=== PATIENT | female | born 1945 | race Caucasian/White ===

== ENCOUNTER → 2016-10-04 | Outpatient (CLI) | payer MEDICARE ==
--- NOTE | 2016-10-04 16:01 | WOMENS IMAGING REPORT ---
EXAM DESCRIPTION: BONE DENSITY HIP/SPINE COMPLETED DATE/TIME: 10/04/2016 2:51 pm REASON FOR STUDY: M81.0 M81.0 AGE-RELATED OSTEOPOROSIS W/O CURRENT PATHOLOGICAL FRAC COMPARISON: 12/08/2004 TECHNIQUE: Dual-Energy X-ray Absorptiometry (DEXA) of the AP Spine and Hip. LIMITATIONS: None. FINDINGS: LUMBAR SPINE: The bone mineral density (BMD) measured from L1-L4 in the AP projection correlates with a T-score of +1.1, which is normal as defined by the World Health Organization. No significant change since 2004 HIP: The bone mineral density (BMD) measured in the left femoral neck at the hip correlates with a T-score of -0.2, which is normal as defined by the World Health Organization. This represents a 9% decline in bone density since 2004 IMPRESSION: 1. LUMBAR SPINE: Normal 2. HIP: Normal COMMENT: The World Health Organization defines low BMD as follows: T-score: Normal: Greater than -1.0 Osteopenia: Between -1.0 and -2.5 Osteoporosis: Less than -2.5 without fractures Established osteoporosis: Less than -2.5 with fractures In general, you may wish to consider: Diagnosis Treatment Follow-up DEXA Normal BMD Prevention 2-3 years Osteopenia Prevention/Therapy 1-2 years Osteoporosis Therapy Yearly TECHNICAL DOCUMENTATION: JOB ID: [id number]- All Rights Reserved
== END ==
LOC: WI 13:04
PROVIDERS: ATTEND Family Medicine
DX: M81.0 Age-related osteoporosis without current pathological fracture (principal)
CPT/HCPCS: 77080

== ENCOUNTER → 2017-05-30 | Outpatient (CLI) | payer MEDICARE ==
--- NOTE | 2017-05-30 16:28 | WOMENS IMAGING REPORT ---
EXAM DESCRIPTION: BILAT SCREENING MAMMO W/CAD COMPLETED DATE/TIME: 05/30/2017 10:37 am REASON FOR STUDY: ROUTINE SCREENING; Z12.31 Z12.31 ENCNTR SCREEN MAMMOGRAM FOR MALIGNANT NEOPLASM O F ARMANDO COMPARISON: 2012 to 2015 TECHNIQUE: Standard craniocaudal and mediolateral oblique views of each breast recorded using Mindiea l acquisition. LIMITATIONS: None. FINDINGS: No masses, calcifications or architectural distortion. No areas of suspicion. Read with the assistance of CAD. .[facility] - R2 Cenova Version 1.3 .[facility] - R2 Cenova Version 1.3 .[facility] - R2 Cenova Version 2.4 .[facility] - R2 Cenova Version 2.4 .[facility] - R2 Vacuum Frame Operator Version 9.2 IMPRESSION: NORMAL MAMMOGRAM. BIRADS 1. BREAST DENSITY: b. There are scattered areas of fibroglandular density. BIRAD: 1 NEGATIVE RECOMMENDATION: ROUTINE SCREENING COMMENT: The patient has been notified of the results by letter per SA requirements. Additional no tification policies are in place for contacting patient with suspicious or incomplete findings. Quality ID #[id number]: The [employer] recommends an annual screening mammogram for women aged 40 years or over. This facility utilizes a reminder system to ensure that all patients receive reminder letters, and/or direct phone calls for appointments. This includes reminders for routine scr eening mammograms, diagnostic mammograms, or other Breast Imaging Interventions when appropriate. Th is patient will be placed in the appropriate reminder system. The [employer] (ACR) has developed recommendations for screening MRI of the breast s in certain patient populations, to be used in conjunction with mammography. Breast MRI surveillanc e may be appropriate for women with more than 20% lifetime risk of developing breast cancer as deter mined by genetic testing, significant family history of the disease, or history of mantle radiation f or Hodgkins Disease. ACR Practice Guidelines 2008. TECHNICAL DOCUMENTATION: FINDING NUMBER: (1) ASSESSMENT: (1) JOB ID: [id number] [employer]- All Rights Reserved
== END ==
LOC: WI 10:21
PROVIDERS: ATTEND Family Medicine
DX: Z12.31 Encounter for screening mammogram for malignant neoplasm of breast (principal)
CPT/HCPCS: 77067

== ENCOUNTER → 2018-08-31 | Outpatient (CLI) | payer MEDICARE ==
--- NOTE | 2018-08-31 12:53 | WOMENS IMAGING REPORT ---
EXAM DESCRIPTION: 3D SCREENING MAMMO BILAT COMPLETED DATE/TIME: 08/31/2018 10:54 am REASON FOR STUDY: Z12.31 ROUTINE 3D BILATERAL SCREENING Z12.31 ENCNTR SCREEN MAMMOGRAM FOR MALIGNAN T NEOPLASM OF ARMANDO COMPARISON: Multiple since 2008 EXAM PARAMETERS: Standard craniocaudal and mediolateral oblique views of each breast recorded using digital acquisition and breast tomosynthesis. Read with the assistance of CAD. .[facility] - R2 Manager Of Construction Version 9.2 LIMITATIONS: None. FINDINGS: Findings present which are benign by mammographic criteria. No suspicious masses, calcific ations or architectural distortion. Pertinent benign findings: Benign bilateral breast parenchymal calcifications. Old stereotactic biop sy clip left breast Benign mammographic findings may include one or more of the following: Smooth masses, popcorn/rim/coa rse calcifications, asymmetries, post-procedure changes, and lesions with long-standing stability. IMPRESSION: Assessment: BENIGN MAMMOGRAPHIC FINDINGS. BIRADS 2 BREAST DENSITY: b. There are scattered areas of fibroglandular density. BIRAD: 2 BENIGN FINDING(S) RECOMMENDATION: ROUTINE SCREENING COMMENT: The patient has been notified of the results by letter per MQSA requirements. Additional no tification policies are in place for contacting patient with suspicious or incomplete findings. Quality ID #[id number]: The [employer] recommends an annual screening mammogram for women aged 40 years or over. This facility utilizes a reminder system to ensure that all patients receive reminder letters, and/or direct phone calls for appointments. This includes reminders for routine scr eening mammograms, diagnostic mammograms, or other Breast Imaging Interventions when appropriate. Th is patient will be placed in the appropriate reminder system. TECHNICAL DOCUMENTATION: FINDING NUMBER: (1) ASSESSMENT: (1) JOB ID: [id number] [employer]- All Rights Reserved Reading location - IP/workstation name: [email or web address]
== END ==
LOC: WI 10:39
PROVIDERS: ATTEND Family Medicine
DX: Z12.31 Encounter for screening mammogram for malignant neoplasm of breast (principal)
CPT/HCPCS: 77063; 77067

== ENCOUNTER 2018-11-05 11:02 | Emergency (ER) | payer MEDICARE ==
[2018-11-05] MEDS ORDERED: ONDANSETRON HCL INJ/PF 4 MG/2 ML SDV IV ONE (12:45)
[2018-11-05] MEDS ORDERED: NORMAL SALINE 1000 ML 1,000 ML IV ONE (12:45)
--- NOTE | 2018-11-05 12:46 | ER Document Report ---
ED Medical Screen (RME) - General Chief Complaint: Nausea/Vomiting/Diarrhea Stated Complaint: ABDOMINAL PAIN Time Seen by Provider: 11/05/18 12:40 Primary Care Provider: MALATHI GIPSON MD [Primary Care Provider] - Follow up as needed Mode of Arrival: Ambulatory Information source: Patient Notes: Patient is a 73-year-old female presents emergency department chief complaint of nausea, vomiting and diarrhea. Patient reports symptoms started yesterday. Patient reports he thinks he may have food poisoning and she ate some keep steak that had been in her refrigerator for over 2 weeks. Patient's reports that the meat had a foul smell to it. Patient now reports blood in her stool. Exam: Generalized abdominal tenderness to palpation, no guarding no rebound. I have greeted and performed a rapid initial assessment of this patient. A comprehensive ED assessment and evaluation of the patient, analysis of test results and completion of the medical decision making process will be conducted by additional ED providers. I have specifically instructed the patient or family members with the patient to immediately return to any nursing staff should anything change in the patient's condition or with their chief complaint. This medical record was dictated with voice recognizing software. There may be grammatical, syntax errors that are unintended. TRAVEL OUTSIDE OF THE [place] IN LAST 30 DAYS: No - Related Data Allergies/Adverse Reactions: No Known Allergies Allergy (Verified 11/05/18 11:04) Past Medical History - Social History Frequency of alcohol use: None Drug Abuse: None - Past Medical History Cardiac Medical History: Reports: Hx Hypercholesterolemia, Hx Hypertension Endocrine Medical History: Reports: Hx Diabetes Mellitus Type 2 Renal/ Medical History: Denies: Hx Peritoneal Dialysis Past Surgical History: Reports: Hx Cardiac Surgery, Hx Cholecystectomy, Hx Hysterectomy, Hx Orthopedic Surgery - L KNee - Immunizations Hx Diphtheria, Pertussis, Tetanus Vaccination: No Physical Exam - Vital signs Vitals: Temp Pulse Resp BP Pulse Ox 98.1 F 98 16 96/78 L 99 11/05/18 11:24 11/05/18 11:24 11/05/18 11:11/05/18 11:11/05/18 11:24 Course - Vital Signs Vital signs: Temp Pulse Resp BP Pulse Ox 98.1 F 98 16 96/78 L 99 11/05/18 11:24 11/05/18 11:24 11/05/18 11:24 11/05/18 11:24 11/05/18 11:24 Doctor's Discharge - Discharge Referrals: MALATHI GIPSON MD [Primary Care Provider] - Follow up as needed
[2018-11-05 13:36] LABS: ABSOLUTE BASOPHILS # (AUTO) 0.1 10^3/uL (0.0-0.2); ABSOLUTE LYMPHOCYTES (AUTO) 1.5 10^3/uL (0.5-4.7); ABSOLUTE MONOCYTES (AUTO) 1.5 10^3/uL (0.1-1.4); ABSOLUTE NEUT (AUTO) 15.2 10^3/uL (1.7-8.2); BASOPHILS % (AUTO) 0.5 % (0-2); EOSINOPHILS % (AUTO) 0.1 % (0-6); HEMATOCRIT 47.6 % (36.0-47.0); HEMOGLOBIN 15.6 g/dL (12.0-15.5); LYMPHOCYTES % (AUTO) 8.1 % (13-45); MEAN CORPUSCULAR HEMOGLOBIN 27.2 pg (27.0-33.4); MEAN CORPUSCULAR HGB CONC 32.8 g/dL (32.0-36.0); MEAN CORPUSCULAR VOLUME 83 fl (80-97); PLATELET COUNT 176 10^3/uL (150-450); RED BLOOD COUNT 5.73 10^6/uL (3.72-5.28); RED CELL DISTRIBUTION WIDTH 14.9 % (11.5-14.0); SEGMENTED NEUTROPHILS % (AUTO) 83.3 % (42-78); TOTAL CELLS COUNTED % (AUTO) 100 %; WHITE BLOOD COUNT 18.2 10^3/uL (4.0-10.5)
[2018-11-05 13:56] LABS: ALANINE AMINOTRANSFERASE 18 U/L (9-52); ALBUMIN 4.8 g/dL (3.5-5.0); ALKALINE PHOSPHATASE 67 U/L (38-126); ANION GAP 12 (5-19); ASPARTATE AMINO TRANSFERASE 31 U/L (14-36); BILIRUBIN,DIRECT 0.4 mg/dL (0.0-0.4); BILIRUBIN,TOTAL 1.5 mg/dL (0.2-1.3); BLOOD UREA NITROGEN 26 mg/dL (7-20); CALCIUM 9.9 mg/dL (8.4-10.2); CARBON DIOXIDE 23 mmol/L (22-30); CHLORIDE 103 mmol/L (98-107); GLUCOSE 175 mg/dL (75-110); POTASSIUM 4.1 mmol/L (3.6-5.0); TOTAL PROTEIN 7.9 g/dL (6.3-8.2)
--- NOTE | 2018-11-05 15:20 | ER Document Report ---
ED GI/ - General Chief Complaint: Nausea/Vomiting/Diarrhea Stated Complaint: ABDOMINAL PAIN Time Seen by Provider: 11/05/18 12:40 Primary Care Provider: MALATHI GIPSON MD [Primary Care Provider] - Follow up as needed Mode of Arrival: Ambulatory Information source: Patient Notes: Patient presents complaining of nausea vomiting diarrhea that started yesterday. Patient states she ate supper and is concerned she may have gotten food poisoning. Patient complains of generalized abdominal pain. Patient states she did notice blood in her stool with the diarrhea. Patient states that the vomiting and diarrhea have stopped although she has had bloody drainage from the rectum. Patient complains of generalized weakness. No fever. Patient does take Eliquis for atrial fibrillation. TRAVEL OUTSIDE OF THE [place] IN LAST 30 DAYS: No - HPI Patient complains to provider of: Abdominal pain, Diarrhea, Vomiting Onset: Yesterday Timing/Duration: Persistent Quality of pain: Achy, Cramping Pain Level: 2 Location: Pelvis Vaginal bleeding (Compared to normal period): None Associated symptoms: Blood in stool, Diarrhea, Nausea, Vomiting. denies: Fever Exacerbated by: Denies Relieved by: Denies Similar symptoms previously: No Recently seen / treated by doctor: No - Related Data Allergies/Adverse Reactions: No Known Allergies Allergy (Verified 11/05/18 11:04) Past Medical History - General Information source: Patient - Social History Smoking Status: Current Every Day Smoker Frequency of alcohol use: None Drug Abuse: None Family History: Reviewed & Not Pertinent Patient has suicidal ideation: No Patient has homicidal ideation: No - Past Medical History Cardiac Medical History: Reports: Hx Atrial Fibrillation, Hx Hypercholesterolemia, Hx Hypertension Endocrine Medical History: Reports: Hx Diabetes Mellitus Type 1 Renal/ Medical History: Denies: Hx Peritoneal Dialysis Past Surgical History: Reports: Hx Cardiac Surgery, Hx Cholecystectomy, Hx Hysterectomy, Hx Orthopedic Surgery - L KNee - Immunizations Hx Diphtheria, Pertussis, Tetanus Vaccination: No Review of Systems - Review of Systems Constitutional: Weakness. denies: Fever, Recent illness EENT: No symptoms reported Cardiovascular: No symptoms reported. denies: Chest pain Respiratory: No symptoms reported. denies: Cough, Short of breath Gastrointestinal: Abdominal pain, Diarrhea, Nausea, Vomiting, Rectal bleeding Genitourinary: No symptoms reported. denies: Dysuria Female Genitourinary: No symptoms reported Musculoskeletal: No symptoms reported Skin: No symptoms reported Hematologic/Lymphatic: No symptoms reported Neurological/Psychological: No symptoms reported Physical Exam - Vital signs Vitals: Temp Pulse Resp BP Pulse Ox 98.1 F 98 16 96/78 L 99 11/05/18 11:24 11/05/18 11:24 11/05/18 11:24 11/05/18 11:24 11/05/18 11:24 - General General appearance: Appears well, Alert In distress: None - HEENT Head: Normocephalic, Atraumatic Eyes: Normal Conjunctiva: Normal Nasal: Normal Mouth/Lips: Normal Mucous membranes: Normal Neck: Normal, Supple. No: Lymphadenopathy - Respiratory Respiratory status: No respiratory distress Chest status: Nontender Breath sounds: Normal. No: Rales, Rhonchi, Stridor, Wheezing Chest palpation: Normal - Cardiovascular Rhythm: Irregularly irregular Heart sounds: S1 appreciated, S2 appreciated - Abdominal Inspection: Normal Distension: No distension Bowel sounds: Normal Tenderness: Tender - lower pelvic Organomegaly: No organomegaly - Rectal Tenderness: No Stool: Heme positive, Bloody Hemorrhoids: None - Back Back: Normal, Nontender. No: CVA tenderness - Extremities General upper extremity: Normal inspection, Normal ROM General lower extremity: Normal inspection, Normal ROM - Neurological Neuro grossly intact: Yes Cognition: Normal Kobe Coma Scale Eye Opening: Spontaneous Kobe Coma Scale Verbal: Oriented Steinauer Coma Scale Motor: Obeys Commands Kobe Coma Scale Total: 15 - Psychological Associated symptoms: Normal affect, Normal mood - Skin Skin Temperature: Warm Skin Moisture: Dry Skin Color: Normal Course - Re-evaluation Re-evalutation: 11/05/18 17:[address] Radha Salazar regarding patient presentation and diagnostic evaluation, reviewed patient's laboratory reports. Patient presents with rectal bleeding after having numerous episodes of diarrhea. Patient has been taking Eliquis for her A. fib. Patient denies any other abnormal bleeding or bruising. Recommends adding on CT scan with IV contrast to evaluate for possible diverticulitis at this time. Recommends contacting hospitalist for admission. 11/05/18 17:[address] Farr regarding patient presentation, he will be down to evaluate patient for admission. - Vital Signs Vital signs: Temp Pulse Resp BP Pulse Ox 98.9 F 98 16 123/68 96 11/05/18 18:37 11/05/18 11:24 11/05/18 20:03 11/05/18 20:03 11/05/18 20:03 - Laboratory Result Diagrams: 11/05/18 13:05 11/05/18 13:05 Laboratory results interpreted by me: 11/05/18 11/05/18 11/05/18 13:05 13:05 16:15 WBC 18.2 H RBC 5.73 H Hgb 15.6 H Hct 47.6 H RDW 14.9 H Seg Neutrophils % 83.3 H Lymphocytes % 8.1 L Absolute Neutrophils 15.2 H Absolute Monocytes 1.5 H BUN 26 H Est GFR (Non-Af Amer) 55 L Glucose 175 H Total Bilirubin 1.5 H Urine Blood SMALL H 11/05/18 20:34 Labs- Entire Visit 11/05/18 11/05/18 11/05/18 13:05 13:05 13:05 WBC 18.2 H RBC 5.73 H Hgb 15.6 H Hct 47.6 H MCV 83 MCH 27.2 MCHC 32.8 RDW 14.9 H Plt Count 176 Seg Neutrophils % 83.3 H Lymphocytes % 8.1 L Monocytes % 8.0 Eosinophils % 0.1 Basophils % 0.5 Absolute Neutrophils 15.2 H Absolute Lymphocytes 1.5 Absolute Monocytes 1.5 H Absolute Eosinophils 0.0 Absolute Basophils 0.1 PT 14.7 INR 1.14 APTT 28.5 Sodium 138.4 Potassium 4.1 Chloride 103 Carbon Dioxide 23 Anion Gap 12 BUN 26 H Creatinine 1.00 Est GFR ( Amer) > 60 Est GFR (Non-Af Amer) 55 L Glucose 175 H Calcium 9.9 Total Bilirubin 1.5 H Direct Bilirubin 0.4 Neonat Total Bilirubin Not Reportable Neonat Direct Bilirubin Not Reportable Neonat Indirect Bili Not Reportable AST 31 ALT 18 Alkaline Phosphatase 67 Total Protein 7.9 Albumin 4.8 Lipase 66.7 Urine Color Urine Appearance Urine pH Ur Specific Moffit Urine Protein Urine Glucose (UA) Urine Ketones Urine Blood Urine Nitrite Urine Bilirubin Urine Urobilinogen Ur Leukocyte Esterase Urine WBC (Auto) Urine RBC (Auto) U Hyaline Cast (Auto) Urine Bacteria (Auto) Squamous Epi Cells Auto Urine Mucus (Auto) Urine Ascorbic Acid POC Stool Occult Blood 11/05/18 11/05/18 16:06 16:15 WBC RBC Hgb Hct MCV MCH MCHC RDW Plt Count Seg Neutrophils % Lymphocytes % Monocytes % Eosinophils % Basophils % Absolute Neutrophils Absolute Lymphocytes Absolute Monocytes Absolute Eosinophils Absolute Basophils PT INR APTT Sodium Potassium Chloride Carbon Dioxide Anion Gap BUN Creatinine Est GFR ( Amer) Est GFR (Non-Af Amer) Glucose Calcium Total Bilirubin Direct Bilirubin Neonat Total Bilirubin Neonat Direct Bilirubin Neonat Indirect Bili AST ALT Alkaline Phosphatase Total Protein Albumin Lipase Urine Color RAFAL Urine Appearance SLIGHTLY-CLOUDY Urine pH 5.0 Ur Specific Moffit 1.016 Urine Protein NEGATIVE Urine Glucose (UA) NEGATIVE Urine Ketones NEGATIVE Urine Blood SMALL H Urine Nitrite NEGATIVE Urine Bilirubin NEGATIVE Urine Urobilinogen NEGATIVE Ur Leukocyte Esterase NEGATIVE Urine WBC (Auto) 10 Urine RBC (Auto) 1 U Hyaline Cast (Auto) 56 Urine Bacteria (Auto) TRACE Squamous Epi Cells Auto 2 Urine Mucus (Auto) MOD Urine Ascorbic Acid NEGATIVE POC Stool Occult Blood POSITIVE - Diagnostic Test Radiology reviewed: Reports reviewed Discharge - Discharge Clinical Impression: Rectal bleeding, Nausea vomiting and diarrhea Abdominal pain Qualifiers: Abdominal location: lower abdomen, unspecified Qualified Code(s): R10.30 - Lower abdominal pain, unspecified Condition: Fair Disposition: ADMITTED OBSERVATION Admitting Provider: Yordan (Hospitalist) Unit Admitted: Telemetry Referrals: MALATHI GIPSON MD [Primary Care Provider] - Follow up as needed
[2018-11-05 15:43] LABS: INTERNATIONAL RATION (INR) 1.14; PARTIAL THROMBOPLASTIN TIME 28.5 SEC (23.5-35.8); PROTHROMBIN TIME 14.7 SEC (11.4-15.4)
[2018-11-05] MEDS ORDERED: PANTOPRAZOLE SODIUM 40 MG VIAL IV ONE (16:10)
[2018-11-05 16:46] LABS: APPEARANCE,URINE SLIGHTLY-CLOUDY; BILIRUBIN,URINE NEGATIVE (NEGATIVE); COLOR,URINE AMBER; GLUCOSE, URINE NEGATIVE (NEGATIVE); KETONES,URINE NEGATIVE (NEGATIVE); LEUKOCYTE ESTERASE,URINE NEGATIVE (NEGATIVE); NITRITE,URINE NEGATIVE (NEGATIVE); PROTEIN,URINE NEGATIVE (NEGATIVE); URINE SPECIFIC GRAVITY 1.016; UROBILINOGEN,URINE NEGATIVE mg/dL (<2.0)
[2018-11-05] MEDS ORDERED: PANTOPRAZOLE SODIUM 40 MG VIAL IV PRN (16:50)
--- NOTE | 2018-11-05 19:23 | RADIOLOGY REPORT (SQ) ---
EXAM DESCRIPTION: CT ABD/PELVIS WITH IV ONLY COMPLETED DATE/TIME: 11/05/2018 6:38 pm REASON FOR STUDY: rectal bleeding, elev WBC, ?diverticulitis COMPARISON: None. TECHNIQUE: CT scan of the abdomen and pelvis performed using helical scanning technique with dynamic intravenous contrast injection. No oral contrast. Images reviewed with lung, soft tissue, and bone windows. Reconstructed coronal and sagittal MPR images reviewed. Delayed images for evaluation of the urinary system also acquired. All images stored on PACS. All CT scanners at this facility use dose modulation, iterative reconstruction, and/or weight based d osing when appropriate to reduce radiation dose to as low as reasonably achievable (ALARA). [facility]: Dose Right [facility]: CareDose [facility]: Dose Right [facility]: Teradose 4D [facility]: [email or web address] CONTRAST TYPE AND DOSE: contrast/concentration: Isovue 350.00 mg/ml; Total Contrast Delivered: 78.0 ml; Total Saline Delivered: 67.0 ml RENAL FUNCTION: BUN 26 creatinine 1 RADIATION DOSE: CT Rad equipment meets quality standard of care and radiation dose reduction techniq ues were employed. CTDIvol: 11.3 - 14.8 mGy. DLP: 1489 mGy-cm.. LIMITATIONS: None. FINDINGS: LOWER CHEST: No significant findings. No nodules or infiltrates. LIVER: Normal size. No masses. No dilated ducts. SPLEEN: Normal size. No focal lesions. PANCREAS: No masses. No significant calcifications. No adjacent inflammation or peripancreatic fluid collections. Pancreatic duct not dilated. GALLBLADDER: Surgically absent. ADRENAL GLANDS: No significant masses or asymmetry. RIGHT KIDNEY AND URETER: No solid masses. No significant calcifications. No hydronephrosis or hyd roureter. LEFT KIDNEY AND URETER: No solid masses. No significant calcifications. No hydronephrosis or hydr oureter. AORTA AND VESSELS: No aneurysm. No dissection. Renal arteries, SMA, celiac without stenosis. RETROPERITONEUM: No retroperitoneal adenopathy, hemorrhage or masses. BOWEL AND PERITONEAL CAVITY: There is thickening of the colon from the distal transverse colon to the rectum. There is sigmoid diverticulosis with no acute inflammation. APPENDIX: Normal. PELVIS: No mass. No free fluid. Normal bladder. ABDOMINAL WALL: No masses. No hernias. BONES: No significant or acute findings. OTHER: No other significant finding. IMPRESSION: Thickening of the left colon suggesting inflammatory bowel disease. Sigmoid diverticulo sis. TECHNICAL DOCUMENTATION: JOB ID: [id number] Quality ID # [id number]: Final reports with documentation of one or more dose reduction techniques (e.g., Au tomated exposure control, adjustment of the mA and/or kV according to patient size, use of iterative reconstruction technique) 2010 [employer]- All Rights Reserved Reading location - IP/workstation name: [email or web address]
[2018-11-05] MEDS ORDERED: NORMAL SALINE 1000 ML 1,000 ML IV PRN (19:34)
[2018-11-05] MEDS ORDERED: ACETAMINOPHEN 325 MG TABLET PO PRN (19:34)
[2018-11-05] MEDS ORDERED: TEMAZEPAM 7.5 MG CAPSULE PO PRN (19:34)
[2018-11-05] MEDS ORDERED: PROMETHAZINE HCL 25 MG TABLET PO PRN (19:41)
[2018-11-05] MEDS ORDERED: MAG HYDROX/AL HYDROX/SIMETH SUSP 30 ML UDCUP PO PRN (19:41)
[2018-11-05] MEDS ORDERED: GLUCAGON,HUMAN RECOMB 1 MG INJ IM PRN (19:45)
[2018-11-05] MEDS ORDERED: DEXTROSE 40% GEL 15 GM TUBE PO PRN ×2 (19:45)
[2018-11-05] MEDS ORDERED: DEXTROSE 50%-WATER 25 GM/50 ML DISP.SYRIN IV PRN ×2 (19:45)
[2018-11-05] MEDS ORDERED: CETIRIZINE 10 MG TABLET PO PRN (19:48)
[2018-11-05] MEDS ORDERED: METOPROLOL TARTRATE PF/INJ 5 MG/5 ML SDV IV PRN (19:51)
--- NOTE | 2018-11-05 19:57 | ADVANCED CARE ---
Attendance: Discussion was had with the patient at the bedside Resuscitation Status: Full Code Discussion: The patient does have a living well. When I asked about her CODE STATUS, specifically what to do if her heart were to stop or she were to stop breathing, she said "will do it if it works ". I explained that it is a quick all or nothing decision. With her living will, naming her eldest son from [place] as decision-maker he would be responsible for making decisions post cardiac arrest. I explained that the decisions typically are based on physician evaluation and prognosis. Some patients are very specific and and living [place] they will state that they do not want to be on a ventilator for longer than a specific amount of time. They also sometimes state that they do not want a tracheostomy or feeding tube. She does not think that any specifics such as those are in place. Care Planning Goals: She should consider adding some parameters to her living will to help relieve her son from some of the very difficult decisions. Document(s) Completed: The patient already has a living well so no documents were completed Time Spent: 18 minutes
[2018-11-05] MEDS ORDERED: TRAMADOL HCL 50 MG TABLET PO PRN (20:23)
--- NOTE | 2018-11-05 20:28 | PDOC H&P ---
History of Present Illness Admission Date/PCP: MALATHI GIPSON MD Patient complains of: Bright red blood per rectum History of Present Illness: ELAINA HAYNES is a 73 year old female is a very pleasant 74-year-old female with complex cardiac history and diabetes who presents to the hospital this morning with complaints of bright red blood per rectum. She states that she made chicken fried steak last night. Her significant other felt that there might of been tainted chicken. The patient ate the chicken and her significant other did not. She got sick and he did not. It is the most likely cause of the illness. She had dinner at approximately 8:30 PM. She began to have pain at about 10:30 PM. Nausea and vomiting started at 11:30 PM and was associated with dizziness. She also felt that she had to move her bowels. She sat on the commode multiple times. After approximately 1 hour, at about 1:00 in the morning, she had explosive diarrhea and fell to the floor. She then went through 5 adult diapers with stool. Towards the end she began to notice traces of blood. She presented to the emergency department about 10:00 this morning and still had traces of bright red blood. The emergency room practitioner performed a rectal exam that showed bright red blood on the glove. Laboratory studies revealed a white blood cell count at 18.2 with a hemoglobin of 15.6 hematocrit of 47.6 MCV of 83 and a platelet count of 176,000. Chemistries revealed a sodium of 138 potassium 4.1 chloride 103 and CO2 23. BUN was slightly elevated at 26 and her creatinine was 1.0. She did have a total bilirubin of 1.5 with a serum glucose of 175. A CT scan of the abdomen was ordered 5 PM. The patient was referred to the hospital service for admission. Past Medical History Cardiac Medical History: Reports: Atrial Fibrillation, Hyperlipidema, Hypertension Pulmonary Medical History: Denies: Asthma, Bronchitis, Chronic Obstructive Pulmonary Disease (COPD), Respiratory Failure EENT Medical History: Denies: Ears, Nose, Throat Neurological Medical History: Reports: Other - The patient had a TIA Endocrine Medical History: Reports: Diabetes Mellitus Type 2 Renal/ Medical History: Denies: Chronic Kidney Disease Malignancy Medical History: Denies: Bone Cancer, Breast Cancer - Breast biopsy negative, Leukemia GI Medical History: Reports: Gastroesophageal Reflux Disease Denies: Cirrhosis, Hiatal Hernia, Peptic Ulcer Disease Musculoskeltal Medical History: Denies: Fibromyalgia, Gout Skin Medical History: Denies: Eczema, Psoriasis Psychiatric Medical History: Denies: Alcohol Dependency, Dementia, Depression, Substance Abuse, Tobacco Dependency Traumatic Medical History: Reports: None Hematology: Reports: Bleeding Tendencies - On Eliquis Denies: Anemia, Heparin Induced Thrombocytopenia, Neutropenia Infectious Medical History: Reports: None Past Surgical History Past Surgical History: Reports: Cholecystectomy, Hysterectomy, Orthopedic Surgery - L [facility], Other - Synchronized cardioversion 2017, cardiac ablation 2019, breast biopsy 2015 Social History Information Source: Patient Lives with: Spouse/Significant other Smoking Status: Former Smoker Last Time Smoked: 2 years ago Frequency of Alcohol Use: None Hx Recreational Drug Use: No Drugs: None Hx Prescription Drug Abuse: No Past Social History Note: with 2 children. - Advance Directive Resuscitation Status: Full Code Surrogate healthcare decision maker:: Patient has a living will. Her oldest son, who lives in [place], is the designated decision maker. Family History Family History: Reviewed & Not Pertinent, CVA Parental Family History Reviewed: Yes - Father with stroke Children Family History Reviewed: Yes - Son with phenylketonuria Sibling(s) Family History Reviewed.: NA Medication/Allergy Allergies/Adverse Reactions: No Known Allergies Allergy (Verified 11/05/18 11:04) Review of Systems Constitutional: PRESENT: as per HPI Eyes: ABSENT: visual disturbances Ears: ABSENT: hearing changes Nose, Mouth, and Throat: ABSENT: headache(s), mouth pain, sore throat Cardiovascular: ABSENT: chest pain, dyspnea on exertion, edema, palpitations - She does report occasional PVCs Respiratory: ABSENT: cough, dyspnea, hemoptysis Gastrointestinal: PRESENT: abdominal pain, diarrhea, hematochezia, nausea, vomiting. ABSENT: hematemesis Genitourinary: ABSENT: difficulty urinating, dysuria, hematuria Musculoskeletal: ABSENT: back pain, joint swelling, muscle weakness Integumentary: ABSENT: diaphoresis, erythema, lesions, pruritus Neurological: PRESENT: dizziness - With vomiting. ABSENT: abnormal movements, abnormal speech, confusion, convulsions, memory loss, syncope Psychiatric: ABSENT: anxiety, depression, hallucinations Endocrine: ABSENT: cold intolerance, heat intolerance, polydipsia, polyphagia, polyuria Hematologic/Lymphatic: ABSENT: easy bleeding - Prior to this episode, easy bruising Allergic/Immunologic: PRESENT: seasonal rhinorrhea Physical Exam Vital Signs: Temp Pulse Resp BP Pulse Ox 98.9 F 98 17 138/97 H 96 11/05/18 18:37 11/05/18 11:24 11/05/18 19:01 11/05/18 19:01 11/05/18 19:01 Intake & Output 11/04/18 11/05/18 11/06/18 06:59 06:59 06:59 Intake Total 1000 Balance 1000 Weight 68.9 kg General appearance: PRESENT: cooperative, mild distress, well-developed Head exam: PRESENT: atraumatic, normocephalic Eye exam: PRESENT: conjunctiva pink, EOMI. ABSENT: scleral icterus Mouth exam: PRESENT: dry mucosa, tongue midline Respiratory exam: PRESENT: clear to auscultation debbie, symmetrical, unlabored. ABSENT: accessory muscle use, rales, rhonchi, tachypnea, wheezes Cardiovascular exam: PRESENT: irregular rhythm Pulses: PRESENT: normal radial pulses, normal dorsalis pedis pul GI/Abdominal exam: PRESENT: normal bowel sounds, soft, tenderness - Across the lower abdomen. ABSENT: distended, guarding, mass Rectal exam: PRESENT: deferred Gentrourinary exam: ABSENT: indwelling catheter Extremities exam: ABSENT: joint swelling, pedal edema Musculoskeletal exam: PRESENT: normal inspection Neurological exam: PRESENT: alert, awake, oriented to person, oriented to place, oriented to time, oriented to situation, CN II-XII grossly intact Psychiatric exam: PRESENT: appropriate affect, normal mood. ABSENT: agitated, anxious Focused psych exam: ABSENT: delusional, restlessness Results Laboratory Results: 11/05/18 13:05 11/05/18 13:05 11/05/18 11/05/18 11/05/18 13:05 13:05 16:15 WBC 18.2 H RBC 5.73 H Hgb 15.6 H Hct 47.6 H MCV 83 MCH 27.2 MCHC 32.8 RDW 14.9 H Plt Count 176 Seg Neutrophils % 83.3 H Lymphocytes % 8.1 L Monocytes % 8.0 Eosinophils % 0.1 Basophils % 0.5 Absolute Neutrophils 15.2 H Absolute Lymphocytes 1.5 Absolute Monocytes 1.5 H Absolute Eosinophils 0.0 Absolute Basophils 0.1 Sodium 138.4 Potassium 4.1 Chloride 103 Carbon Dioxide 23 Anion Gap 12 BUN 26 H Creatinine 1.00 Est GFR ( Amer) > 60 Est GFR (Non-Af Amer) 55 L Glucose 175 H Calcium 9.9 Total Bilirubin 1.5 H AST 31 ALT 18 Alkaline Phosphatase 67 Total Protein 7.9 Albumin 4.8 Lipase 66.7 Urine Color RAFAL Urine Appearance SLIGHTLY-CLOUDY Urine pH 5.0 Ur Specific [place] 1.016 Urine Protein NEGATIVE Urine Glucose (UA) NEGATIVE Urine Ketones NEGATIVE Urine Blood SMALL H Urine Nitrite NEGATIVE Ur Leukocyte Esterase NEGATIVE Urine WBC (Auto) 10 Urine RBC (Auto) 1 Impressions: Abdomen/Pelvis CT 11/05/18 16:59 IMPRESSION: Thickening of the left colon suggesting inflammatory bowel disease. Sigmoid diverticulosis. Assessment and Plan - Diagnosis (1) Rectal bleeding Is this a current diagnosis for this admission?: Yes Plan: 11/05/2018-as noted above the patient experienced nausea, vomiting and diarrhea likely from tainted chicken. She is on Eliquis for atrial fibrillation. She began seeing bright red blood per rectum. She reports it was small amounts and not copious clots. Her hemoglobin was 15.7 and this could be partly due to hemoconcentration. We will monitor her stool output for evidence of blood. More importantly we are checking serial hemoglobins to monitor for any precipitous drop. I am holding her Eliquis. She is not receiving DVT prophylaxis either. (2) Nausea vomiting and diarrhea Is this a current diagnosis for this admission?: Yes Plan: 11/05/2018-this is likely due to the [place] as noted above. I did order stool cultures since her white blood cell count was 18,000. There is no evidence of infection with her urine analysis. I will hold off on antibiotics at this time since she is afebrile and is not having further episodes of diarrhea. CT scan of the abdomen did show inflammation of the descending and sigmoid colon. There was diverticulosis but no evidence of diverticulitis. Will continue to monitor closely. Antiemetics are ordered. She is also getting IV fluid for volume replacement. (3) Abdominal pain Qualifiers: Abdominal location: lower abdomen, unspecified Qualified Code(s): R10.30 - Lower abdominal pain, unspecified Is this a current diagnosis for this admission?: Yes Plan: 11/05/2018-as noted above the pain is across the lower abdomen. She is tender. She does have bowel sounds. I did not appreciate any masses. She does report the most discomfort in the left lower quadrant. This correlates with inflammation in the descending and sigmoid colon. CT findings did not suggest diverticulitis or diverticular abscess. (4) Diabetes mellitus type 2, insulin dependent Is this a current diagnosis for this admission?: Yes Plan: The patient is on Lantus and Trulicity. She takes the Trulicity once a week on Mondays. She did miss her dose today. Because she has not eaten all day I am covering her with a sliding scale before meals and at bedtime and will hold off on the Lantus for the time being. She had minimal to eat today. Hypoglycemia protocol is in place. (5) Atrial fibrillation Qualifiers: Atrial fibrillation type: chronic Qualified Code(s): I48.2 - Chronic atrial fibrillation Is this a current diagnosis for this admission?: Yes Plan: 11/05/2018-the patient has a long history of fibrillation. She failed synchronized cardioversion in 2017 and failed ablation in 2019. She is on metoprolol and Tikosyn. She is also tachycardic likely from her illness. We will continue with her current medications. She is getting IV fluid. We are holding her chronic anticoagulation due to GI bleeding. She will be monitored on telemetry during her stay. (6) Hypertension Qualifiers: Hypertension type: essential hypertension Qualified Code(s): I10 - Essential (primary) hypertension Is this a current diagnosis for this admission?: Yes Plan: 11/05/2018-the patient is on amlodipine, benazepril and metoprolol in addition to the Tikosyn. I have put parameters on the medications since she was hypotensive on admission. This is likely due to volume loss from the vomiting and diarrhea. (7) Dehydration Is this a current diagnosis for this admission?: Yes Plan: The patient likely had mild dehydration with low tension and hemoconcentration. She was given a liter of fluid in the emergency department. I will administer IV fluids through tonight and continue to monitor her blood work. - Time Time Spent with patient: 35 or more minutes Medications reviewed and adjusted accordingly: Yes Anticipated discharge: Home
[2018-11-05 20:40] LABS: ABSOLUTE BASOPHILS # (AUTO) 0.1 10^3/uL (0.0-0.2); ABSOLUTE LYMPHOCYTES (AUTO) 1.8 10^3/uL (0.5-4.7); ABSOLUTE MONOCYTES (AUTO) 1.2 10^3/uL (0.1-1.4); ABSOLUTE NEUT (AUTO) 12.3 10^3/uL (1.7-8.2); BASOPHILS % (AUTO) 0.5 % (0-2); EOSINOPHILS % (AUTO) 0.2 % (0-6); LYMPHOCYTES % (AUTO) 11.7 % (13-45); MEAN CORPUSCULAR HEMOGLOBIN 27.2 pg (27.0-33.4); MEAN CORPUSCULAR HGB CONC 33.1 g/dL (32.0-36.0); MEAN CORPUSCULAR VOLUME 82 fl (80-97); MONOCYTES % (AUTO) 7.9 % (3-13); PLATELET COUNT 136 10^3/uL (150-450); RED BLOOD COUNT 4.88 10^6/uL (3.72-5.28); RED CELL DISTRIBUTION WIDTH 14.7 % (11.5-14.0); SEGMENTED NEUTROPHILS % (AUTO) 79.7 % (42-78); TOTAL CELLS COUNTED % (AUTO) 100 %; WHITE BLOOD COUNT 15.4 10^3/uL (4.0-10.5)
[2018-11-05 20:44] LABS: HEMOGLOBIN 13.2 g/dL (12.0-15.5)
[2018-11-05 20:53] LABS: ANION GAP 9 (5-19); BLOOD UREA NITROGEN 21 mg/dL (7-20); CALCIUM 8.3 mg/dL (8.4-10.2); CARBON DIOXIDE 21 mmol/L (22-30); CHLORIDE 107 mmol/L (98-107); GLUCOSE 134 mg/dL (75-110); POTASSIUM 3.6 mmol/L (3.6-5.0)
[2018-11-05] MEDS: INSULIN LISPRO 100 UNIT/ML 3 ML VIAL SUBCUT SCH (22:04)
[2018-11-05] MEDS: ATORVASTATIN CALCIUM 10 MG TABLET PO SCH (22:06)
[2018-11-05] MEDS ORDERED: DOFETILIDE 125 MCG CAPSULE ONE (22:23)
[2018-11-05] MEDS: DOFETILIDE 125 MCG CAPSULE PO SCH (22:35)
[2018-11-06 05:05] LABS: ABSOLUTE BASOPHILS # (AUTO) 0.1 10^3/uL (0.0-0.2); ABSOLUTE EOSINOPHILS # (AUTO) 0.1 10^3/uL (0.0-0.6); ABSOLUTE LYMPHOCYTES (AUTO) 2.2 10^3/uL (0.5-4.7); ABSOLUTE MONOCYTES (AUTO) 0.9 10^3/uL (0.1-1.4); ABSOLUTE NEUT (AUTO) 9.7 10^3/uL (1.7-8.2); EOSINOPHILS % (AUTO) 0.7 % (0-6); HEMATOCRIT 38.7 % (36.0-47.0); HEMOGLOBIN 12.9 g/dL (12.0-15.5); LYMPHOCYTES % (AUTO) 16.7 % (13-45); MEAN CORPUSCULAR HEMOGLOBIN 27.3 pg (27.0-33.4); MEAN CORPUSCULAR HGB CONC 33.3 g/dL (32.0-36.0); MEAN CORPUSCULAR VOLUME 82 fl (80-97); MONOCYTES % (AUTO) 6.8 % (3-13); PLATELET COUNT 120 10^3/uL (150-450); RED BLOOD COUNT 4.72 10^6/uL (3.72-5.28); RED CELL DISTRIBUTION WIDTH 15.1 % (11.5-14.0); SEGMENTED NEUTROPHILS % (AUTO) 74.8 % (42-78); TOTAL CELLS COUNTED % (AUTO) 100 %; WHITE BLOOD COUNT 12.9 10^3/uL (4.0-10.5)
[2018-11-06 05:23] LABS: ANION GAP 9 (5-19); BLOOD UREA NITROGEN 14 mg/dL (7-20); CALCIUM 8.6 mg/dL (8.4-10.2); CARBON DIOXIDE 21 mmol/L (22-30); CHLORIDE 109 mmol/L (98-107); GLUCOSE 132 mg/dL (75-110); POTASSIUM 3.3 mmol/L (3.6-5.0)
[2018-11-06] MEDS: PANTOPRAZOLE SODIUM 40 MG TABLET.DR PO SCH (05:44)
[2018-11-06] MEDS: INSULIN LISPRO 100 UNIT/ML 3 ML VIAL SUBCUT SCH ×4 (08:38→22:01)
--- NOTE | 2018-11-06 10:52 | Progress Note Acknowledgement ---
Progress Note Acknowledgement Progess Note Acknowledgement: I, the undersigned member of the medical staff with appropriate privileges and with supervisory authority over [Timbo Saavedra], a dependent practice allied health professional, acknowledge that I have reviewed the progress notes entered on this patient, and in my professional judgment believe that the assessment made and/or any care evidenced was appropriate
[2018-11-06] MEDS ORDERED: POTASSIUM CHLORIDE 10 MEQ CAPSULE.ER PO ONE ×2 (10:57→11:58)
--- NOTE | 2018-11-06 10:59 | PDOC PROGRESS REPORT ---
Subjective Progress Note for:: 11/06/18 Subjective:: Nasal congestion Reason For Visit: GI BLEED,INFECTIOUS DIARRHEA,ATRIAL FIBRILLATION Physical Exam Vital Signs: Temp Pulse Resp BP Pulse Ox 98.2 F 117 H 16 138/84 H 90 L 11/06/18 08:15 11/06/18 08:15 11/06/18 08:15 11/06/18 08:15 11/06/18 08:15 Intake & Output 11/05/18 11/06/18 11/07/18 06:59 06:59 06:59 Intake Total 1408 Balance 1408 Weight 70.5 kg General appearance: PRESENT: no acute distress, well-developed, well-nourished Neck exam: ABSENT: carotid bruit, JVD, lymphadenopathy, thyromegaly Respiratory exam: PRESENT: clear to auscultation debbie. ABSENT: rales, rhonchi, wheezes Cardiovascular exam: PRESENT: RRR. ABSENT: diastolic murmur, rubs, systolic murmur Pulses: PRESENT: normal dorsalis pedis pul Vascular exam: PRESENT: normal capillary refill GI/Abdominal exam: PRESENT: normal bowel sounds, soft. ABSENT: distended, guarding, mass, organolmegaly, rebound, tenderness Extremities exam: PRESENT: full ROM. ABSENT: calf tenderness, clubbing, pedal edema Neurological exam: PRESENT: alert, awake, oriented to person, oriented to place, oriented to time, oriented to situation, CN II-XII grossly intact. ABSENT: motor sensory deficit Psychiatric exam: PRESENT: appropriate affect, normal mood. ABSENT: homicidal ideation, suicidal ideation Skin exam: PRESENT: dry, intact, warm. ABSENT: cyanosis, rash Results Laboratory Results: 11/06/18 04:45 11/06/18 04:45 11/05/18 11/05/18 11/05/18 13:05 13:05 16:15 WBC 18.2 H RBC 5.73 H Hgb 15.6 H Hct 47.6 H MCV 83 MCH 27.2 MCHC 32.8 RDW 14.9 H Plt Count 176 Seg Neutrophils % 83.3 H Lymphocytes % 8.1 L Monocytes % 8.0 Eosinophils % 0.1 Basophils % 0.5 Absolute Neutrophils 15.2 H Absolute Lymphocytes 1.5 Absolute Monocytes 1.5 H Absolute Eosinophils 0.0 Absolute Basophils 0.1 Sodium 138.4 Potassium 4.1 Chloride 103 Carbon Dioxide 23 Anion Gap 12 BUN 26 H Creatinine 1.00 Est GFR ( Amer) > 60 Est GFR (Non-Af Amer) 55 L Glucose 175 H Calcium 9.9 Magnesium Total Bilirubin 1.5 H AST 31 ALT 18 Alkaline Phosphatase 67 Total Protein 7.9 Albumin 4.8 Lipase 66.7 Urine Color RAFAL Urine Appearance SLIGHTLY-CLOUDY Urine pH 5.0 Ur Specific [place] 1.016 Urine Protein NEGATIVE Urine Glucose (UA) NEGATIVE Urine Ketones NEGATIVE Urine Blood SMALL H Urine Nitrite NEGATIVE Ur Leukocyte Esterase NEGATIVE Urine WBC (Auto) 10 Urine RBC (Auto) 1 11/05/18 11/05/18 11/06/18 20:00 20:00 04:45 WBC 15.4 H 12.9 H RBC 4.88 4.72 Hgb 13.2 D 12.9 Hct 40.0 38.7 MCV 82 82 MCH 27.2 27.3 MCHC 33.1 33.3 RDW 14.7 H 15.1 H Plt Count 136 L 120 L Seg Neutrophils % 79.7 H 74.8 Lymphocytes % 11.7 L 16.7 Monocytes % 7.9 6.8 Eosinophils % 0.2 0.7 Basophils % 0.5 1.0 Absolute Neutrophils 12.3 H 9.7 H Absolute Lymphocytes 1.8 2.2 Absolute Monocytes 1.2 0.9 Absolute Eosinophils 0.0 0.1 Absolute Basophils 0.1 0.1 Sodium 137.4 Potassium 3.6 Chloride 107 Carbon Dioxide 21 L Anion Gap 9 BUN 21 H Creatinine 0.62 Est GFR ( Amer) > 60 Est GFR (Non-Af Amer) > 60 Glucose 134 H Calcium 8.3 L Magnesium 1.7 Total Bilirubin AST ALT Alkaline Phosphatase Total Protein Albumin Lipase Urine Color Urine Appearance Urine pH Ur Specific [place] Urine Protein Urine Glucose (UA) Urine Ketones Urine Blood Urine Nitrite Ur Leukocyte Esterase Urine WBC (Auto) Urine RBC (Auto) 11/06/18 04:45 WBC RBC Hgb Hct MCV MCH MCHC RDW Plt Count Seg Neutrophils % Lymphocytes % Monocytes % Eosinophils % Basophils % Absolute Neutrophils Absolute Lymphocytes Absolute Monocytes Absolute Eosinophils Absolute Basophils Sodium 138.9 Potassium 3.3 L Chloride 109 H Carbon Dioxide 21 L Anion Gap 9 BUN 14 Creatinine 0.57 Est GFR ( Amer) > 60 Est GFR (Non-Af Amer) > 60 Glucose 132 H Calcium 8.6 Magnesium 1.8 Total Bilirubin AST ALT Alkaline Phosphatase Total Protein Albumin Lipase Urine Color Urine Appearance Urine pH Ur Specific [place] Urine Protein Urine Glucose (UA) Urine Ketones Urine Blood Urine Nitrite Ur Leukocyte Esterase Urine WBC (Auto) Urine RBC (Auto) Impressions: Abdomen/Pelvis CT 11/05/18 16:59 IMPRESSION: Thickening of the left colon suggesting inflammatory bowel disease. Sigmoid diverticulosis. Assessment and Plan - Diagnosis (1) Rectal bleeding Is this a current diagnosis for this admission?: Yes Plan: 11/05/2018-as noted above the patient experienced nausea, vomiting and diarrhea likely from tainted chicken. She is on Eliquis for atrial fibrillation. She began seeing bright red blood per rectum. She reports it was small amounts and not copious clots. Her hemoglobin was 15.7 and this could be partly due to hem oconcentration. We will monitor her stool output for evidence of blood. More importantly we are checking serial hemoglobins to monitor for any precipitous drop. I am holding her Eliquis. She is not receiving DVT prophylaxis either. 11/06/2018-patient's nausea vomiting and diarrhea has improved. Patient states she still having slight amounts of bright red blood per rectum. I suspect this is mostly hemorrhoidal in nature as she is not had a large drop in her hemoglobin. I suspect she is also hemoconcentrated and upon getting fluids she is back down now to where she normally resides with her hemoglobin. We will repeat hemoglobin in the a.m. at this time I see no need to consult GI. We will continue to follow most likely turn home tomorrow replaced back on Eliquis at that time. (2) Nasal congestion Is this a current diagnosis for this admission?: Yes Plan: 11/06/2018-continue Flonase. [place] nasal spray as needed. (3) Hypokalemia Is this a current diagnosis for this admission?: Yes Plan: November 06, 2018-potassium is 3.3. Potassium chloride 40 mEq p.o. times 1 repeat BMP in a.m. - Time Time Spent with patient: Less than 15 minutes - Inpatient Certification Based on my medical assessment, after consideration of the patient's comorbidities, presenting symptoms, or acuity I expect that the services needed warrant INPATIENT care.: Yes I certify that my determination is in accordance with my understanding of Medicare's requirements for reasonable and necessary INPATIENT services [42 CFR 412.3e].: Yes Medical Necessity: Other - Continue monitoring hemoglobin hematocrit.
[2018-11-06] MEDS: FLUTICASONE NASAL SPRAY 50 MCG/SPRY 120 SPRAY/16 GM NASL SCH ×2 (11:00→17:00)
[2018-11-06] MEDS: AMLODIPINE BESYLATE 10 MG TABLET PO SCH (11:00)
[2018-11-06] MEDS: METOPROLOL SUCCINATE 50 MG TAB.SR.24H PO SCH (11:00)
[2018-11-06] MEDS: DOFETILIDE 125 MCG CAPSULE PO SCH ×2 (11:17→22:02)
[2018-11-06] MEDS: LISINOPRIL 10 MG TABLET PO SCH (11:24)
[2018-11-06] MEDS: SODIUM CHLORIDE NASAL SPRAY 44 ML NASL SCH ×3 (13:31→22:03)
[2018-11-06] MEDS: ATORVASTATIN CALCIUM 10 MG TABLET PO SCH (22:01)
[2018-11-07] MEDS: PANTOPRAZOLE SODIUM 40 MG TABLET.DR PO SCH (06:07)
[2018-11-07 08:09] LABS: ANION GAP 8 (5-19); BLOOD UREA NITROGEN 11 mg/dL (7-20); CALCIUM 8.5 mg/dL (8.4-10.2); CARBON DIOXIDE 25 mmol/L (22-30); CHLORIDE 107 mmol/L (98-107); GLUCOSE 125 mg/dL (75-110); POTASSIUM 3.8 mmol/L (3.6-5.0)
[2018-11-07] MEDS: INSULIN LISPRO 100 UNIT/ML 3 ML VIAL SUBCUT SCH (09:01)
[2018-11-07] MEDS: SODIUM CHLORIDE NASAL SPRAY 44 ML NASL SCH ×2 (09:02→10:51)
[2018-11-07 10:37] LABS: HEMATOCRIT 37.8 % (36.0-47.0); HEMOGLOBIN 12.7 g/dL (12.0-15.5); MEAN CORPUSCULAR HEMOGLOBIN 27.9 pg (27.0-33.4); MEAN CORPUSCULAR HGB CONC 33.7 g/dL (32.0-36.0); MEAN CORPUSCULAR VOLUME 83 fl (80-97); PLATELET COUNT 124 10^3/uL (150-450); RED BLOOD COUNT 4.57 10^6/uL (3.72-5.28); RED CELL DISTRIBUTION WIDTH 14.7 % (11.5-14.0); WHITE BLOOD COUNT 9.3 10^3/uL (4.0-10.5)
[2018-11-07] MEDS: METOPROLOL SUCCINATE 50 MG TAB.SR.24H PO SCH (10:49)
[2018-11-07] MEDS: DOFETILIDE 125 MCG CAPSULE PO SCH (10:49)
[2018-11-07] MEDS: AMLODIPINE BESYLATE 10 MG TABLET PO SCH (10:50)
[2018-11-07] MEDS: LISINOPRIL 10 MG TABLET PO SCH (10:50)
--- NOTE | 2018-11-07 11:26 | PDOC DISCHARGE SUMMARY ---
General - Admit/Disc Date/PCP Admission Date/Primary Care Provider: 11/05/18 22:33 MALATHI GIPSON MD Discharge Date: 11/07/18 - Discharge Diagnosis (1) Rectal bleeding Is this a current diagnosis for this admission?: Yes (2) Nasal congestion Is this a current diagnosis for this admission?: Yes (3) Hypokalemia Is this a current diagnosis for this admission?: Yes - Additional Information Resuscitation Status: Full Code Discharge Diet: As Tolerated Discharge Activity: Activity As Tolerated Home Medications: Amlodipine Besylate/Benazepril [Amlodipine-Benazepril 10-40 mg] 1 tab PO DAILY 11/05/18 Apixaban [Eliquis 5 mg Tablet] 5 mg PO BID 11/05/18 Dofetilide [Tikosyn] 250 mcg PO Q12 11/05/18 Dulaglutide [Trulicity] 0.5 ml INJ MO@1000 11/05/18 Insulin Glargine,Hum.rec.anlog [Lantus Insulin 100 Unit/1 ml 10 ml] 30 unit SUBCUT DAILY 11/05/18 Ivermectin [Soolantra] 1 applic TOP DAILY 11/05/18 Metoprolol Succinate [Toprol XL 100 mg Tablet] 100 mg PO DAILY 11/05/18 Rosuvastatin Calcium [Crestor 5 mg Tablet] 5 mg PO DAILY 11/05/18 Atorvastatin Calcium [Lipitor 10 mg Tablet] 10 mg PO QHS tablet 11/07/18 Cetirizine HCl [Zyrtec 10 mg Tablet] 10 mg PO DAILYP PRN tablet 11/07/18 History of Present Illness Patient complains of: None at this time History of Present Illness: Ms. Santamaria is a very pleasant 73-year-old female who presented to ER after eating some "bad chicken" and developed some diarrhea and bright rectal bleeding. Patient was admitted and was found to have a hemorrhoidal bleed. Patient takes Eliquis chronically so she was monitored for a GI bleed. Over the course of several days patient's enteritis resolved and she showed a stable hemoglobin for that time. At this time patient is improved significantly return home. Patient will be started back on her Eliquis at this time she will follow-up with primary care within 7 days. I will continue all patient's current home medications. Patient has agreed with this plan of care. Hospital Course Hospital Course: Ms. Santamaria is a very pleasant 73-year-old female who presented to ER after eating some "bad chicken" and developed some diarrhea and bright rectal bleeding. Patient was admitted and was found to have a hemorrhoidal bleed. Patient takes Eliquis chronically so she was monitored for a GI bleed. Over the course of several days patient's enteritis resolved and she showed a stable hemoglobin for that time. At this time patient is improved significantly return home. Patient will be started back on her Eliquis at this time she will follow-up with primary care within 7 days. I will continue all patient's current home medications. Patient has agreed with this plan of care. Physical Exam Vital Signs: Temp Pulse Resp BP Pulse Ox 98.3 F 79 17 111/88 H 98 11/07/18 08:15 11/07/18 08:15 11/07/18 08:15 11/07/18 08:15 11/07/18 08:15 Intake & Output 11/06/18 11/07/18 11/08/18 06:59 06:59 06:59 Intake Total 1408 1400 Balance 1408 1400 Weight 70.5 kg 70.5 kg General appearance: PRESENT: no acute distress, well-developed, well-nourished Head exam: PRESENT: atraumatic, normocephalic Eye exam: PRESENT: conjunctiva pink, EOMI, PERRLA. ABSENT: scleral icterus Ear exam: PRESENT: normal external ear exam Mouth exam: PRESENT: moist, tongue midline Neck exam: ABSENT: carotid bruit, JVD, lymphadenopathy, thyromegaly Respiratory exam: PRESENT: clear to auscultation debbie. ABSENT: rales, rhonchi, wheezes Cardiovascular exam: PRESENT: RRR. ABSENT: diastolic murmur, rubs, systolic murmur Pulses: PRESENT: normal dorsalis pedis pul Vascular exam: PRESENT: normal capillary refill GI/Abdominal exam: PRESENT: normal bowel sounds, soft. ABSENT: distended, guarding, mass, organolmegaly, rebound, tenderness Rectal exam: PRESENT: deferred Extremities exam: PRESENT: full ROM. ABSENT: calf tenderness, clubbing, pedal edema Neurological exam: PRESENT: alert, awake, oriented to person, oriented to place, oriented to time, oriented to situation, CN II-XII grossly intact. ABSENT: motor sensory deficit Psychiatric exam: PRESENT: appropriate affect, normal mood. ABSENT: homicidal ideation, suicidal ideation Skin exam: PRESENT: dry, intact, warm. ABSENT: cyanosis, rash Results Laboratory Results: 11/07/18 07:17 11/07/18 07:17 11/07/18 11/07/18 07:17 07:17 WBC 9.3 RBC 4.57 Hgb 12.7 Hct 37.8 MCV 83 MCH 27.9 MCHC 33.7 RDW 14.7 H Plt Count 124 L Sodium 139.5 Potassium 3.8 Chloride 107 Carbon Dioxide 25 Anion Gap 8 BUN 11 Creatinine 0.53 Est GFR ( Amer) > 60 Est GFR (Non-Af Amer) > 60 Glucose 125 H Calcium 8.5 Impressions: Abdomen/Pelvis CT 11/05/18 16:59 IMPRESSION: Thickening of the left colon suggesting inflammatory bowel disease. Sigmoid diverticulosis. Qualifiers - * PATIENT BEING DISCHARGED WITH ANY OF THE FOLLOWING DIAGNOSIS: No Acute Heart Failure - Is this a Heart Failure Patient?: No Plan Time Spent: Greater than 30 Minutes
--- NOTE | 2018-11-07 11:28 | ADVANCED CARE ---
- Diagnosis (1) Rectal bleeding Diagnosis Current: Yes (2) Nasal congestion Diagnosis Current: Yes (3) Hypokalemia Diagnosis Current: Yes Attendance: Patient and myself Resuscitation Status: Full Code Discussion: Discussion with patient about causes of her rectal bleeding. Patient had "bad chicken" prior to arrival to the ER developed diarrhea. I stated that was di arrhea she most likely had hemorrhoidal tear. Patient has a stable hemoglobin at this time. Discussed with patient we will send her home if her hemoglobin was returned this morning stable and she would rather resume on Eliquis. Patient will follow-up with her primary care practitioner in 7 days. Patient is in agreement with this plan of care. Care Planning Goals: 1-continue Eliquis 2-follow-up with primary care in 7 days. 3-return to ER for any further complaints. Document(s) Completed: 20 minutes
[2018-11-07 12:01] VITALS: BP 110/66
== END 2018-11-07 12:25 | disposition home or self-care (01) ==
LOC: ER 11:02 → EH 22:33 → 3W 11-06 00:38 → 4N 11-06 20:45
PROVIDERS: ADMIT Hospitalist; ATTEND Hospitalist
DX: K62.5 Hemorrhage of anus and rectum (principal); R09.81 Nasal congestion; E87.6 Hypokalemia; K64.9 Unspecified hemorrhoids; I48.2 Chronic atrial fibrillation; I10 Essential (primary) hypertension; R10.30 Lower abdominal pain, unspecified; K52.9 Noninfective gastroenteritis and colitis, unspecified; K57.30 Diverticulosis of large intestine without perforation or abscess without bleeding; E11.9 Type 2 diabetes mellitus without complications; E86.0 Dehydration; D72.829 Elevated white blood cell count, unspecified; R42 Dizziness and giddiness; E78.5 Hyperlipidemia, unspecified; Z79.899 Other long term (current) drug therapy; Z79.4 Long term (current) use of insulin; Z86.73 Personal history of transient ischemic attack (TIA), and cerebral infarction without residual deficits; Z79.02 Long term (current) use of antithrombotics/antiplatelets; Z90.49 Acquired absence of other specified parts of digestive tract; Z90.710 Acquired absence of both cervix and uterus; Z87.891 Personal history of nicotine dependence
CPT/HCPCS: 96376; 99285; 96361; 96375; 96365; 96366; 36415 ×3; 82962 ×3; 83690; 83735 ×2; 85025 ×2; 85027; 85610; 85730; 80048 ×2; 80053; 81001; 74177; G0378 ×4; J3490 ×5; J1815 ×2; S0164; J2405; J7030

== ENCOUNTER → 2019-12-11 | Outpatient (CLI) | payer MEDICARE ==
[2019-12-11 17:25] LABS: ABSOLUTE BASOPHILS # (AUTO) 0.1 10^3/uL (0.0-0.2); ABSOLUTE EOSINOPHILS # (AUTO) 0.3 10^3/uL (0.0-0.6); ABSOLUTE LYMPHOCYTES (AUTO) 2.2 10^3/uL (0.5-4.7); ABSOLUTE MONOCYTES (AUTO) 0.7 10^3/uL (0.1-1.4); ABSOLUTE NEUT (AUTO) 2.9 10^3/uL (1.7-8.2); BASOPHILS % (AUTO) 1.1 % (0-2); EOSINOPHILS % (AUTO) 4.1 % (0-6); HEMATOCRIT 41.1 % (36.0-47.0); HEMOGLOBIN 13.9 g/dL (12.0-15.5); LYMPHOCYTES % (AUTO) 35.7 % (13-45); MEAN CORPUSCULAR HEMOGLOBIN 28.7 pg (27.0-33.4); MEAN CORPUSCULAR HGB CONC 33.7 g/dL (32.0-36.0); MEAN CORPUSCULAR VOLUME 85 fl (80-97); MONOCYTES % (AUTO) 11.7 % (3-13); PLATELET COUNT 183 10^3/uL (150-450); RED BLOOD COUNT 4.84 10^6/uL (3.72-5.28); RED CELL DISTRIBUTION WIDTH 14.2 % (11.5-14.0); SEGMENTED NEUTROPHILS % (AUTO) 47.4 % (42-78); TOTAL CELLS COUNTED % (AUTO) 100 %; WHITE BLOOD COUNT 6.1 10^3/uL (4.0-10.5)
[2019-12-11 17:45] LABS: ALBUMIN 4.1 g/dL (3.5-5.0); ALKALINE PHOSPHATASE 65 U/L (38-126); ANION GAP 10 (5-19); ASPARTATE AMINO TRANSFERASE 39 U/L (14-36); BILIRUBIN,DIRECT 0.4 mg/dL (0.0-0.4); BILIRUBIN,TOTAL 0.7 mg/dL (0.2-1.3); BLOOD UREA NITROGEN 14 mg/dL (7-20); CALCIUM 9.3 mg/dL (8.4-10.2); CARBON DIOXIDE 26 mmol/L (22-30); CHLORIDE 105 mmol/L (98-107); GLUCOSE 141 mg/dL (75-110); POTASSIUM 4.3 mmol/L (3.6-5.0); TOTAL PROTEIN 6.8 g/dL (6.3-8.2)
== END ==
LOC: OD 16:28
PROVIDERS: ATTEND Specialist/Technologist Athletic Trainer
DX: I10 Essential (primary) hypertension (principal); Z11.2 Encounter for screening for other bacterial diseases
CPT/HCPCS: 36415; 80053; 85025; 87070

== ENCOUNTER → 2020-01-22 | Outpatient (CLI) | payer MEDICARE ==
--- NOTE | 2020-01-22 16:13 | WOMENS IMAGING REPORT ---
EXAM DESCRIPTION: BILAT SCREENING MAMMO W/CAD IMAGES COMPLETED DATE/TIME: 01/22/2020 2:24 pm REASON FOR STUDY: Z12.31 Z12.31 ENCOUNTER FOR SCREENING MAMMOGRAM FOR MALIGNANT NEOPLASM OF BZ12.31 ENCNTR SCREEN MAMMOGRAM FOR MALIGNANT NEOPLASM OF [place] COMPARISON: 2015 to 2018 EXAM PARAMETERS: Standard craniocaudal and mediolateral oblique views of each breast recorded using digital acquisition. Read with the assistance of CAD. .[facility] - [employer] Driver Version 9.2 LIMITATIONS: None. FINDINGS: RIGHT BREAST MASSES: No suspicious masses. CALCIFICATIONS: No suspicious calcifications ARCHITECTURAL DISTORTION: None. ASYMMETRY: None noted. OTHER: No other significant findings. LEFT BREAST MASSES: No suspicious masses. CALCIFICATIONS: New calcifications 3 o'clock 6 cm from the nipple ARCHITECTURAL DISTORTION: None. ASYMMETRY: None noted. OTHER: No other significant findings. IMPRESSION: Calcifications left breast 0 Incomplete: Needs Additional Imaging Evaluation and/or prior Mammograms for Comparison. BREAST DENSITY: a. The breasts are almost entirely fatty. BIRAD: ASSESSMENT: 0 Incomplete: Needs Additional Imaging Evaluation and/or prior Mammograms for C omparison. RECOMMENDATION: RECOMMENDED FOLLOW-UP: Magnification. The patient will be contacted for additional imaging. COMMENT: The patient has been notified of the results by letter per [place] requirements. Additional no tification policies are in place for contacting patient with suspicious or incomplete findings. Quality ID #[id number]: The [employer] recommends an annual screening mammogram for women aged 40 years or over. This facility utilizes a reminder system to ensure that all patients receive reminder letters, and/or direct phone calls for appointments. This includes reminders for routine scr eening mammograms, diagnostic mammograms, or other Breast Imaging Interventions when appropriate. Th is patient will be placed in the appropriate reminder system. TECHNICAL DOCUMENTATION: FINDING NUMBER: (1) ASSESSMENT: (1) JOB ID: [id number] 2010 [employer]- All Rights Reserved Reading location - IP/workstation name: [email or web address]
== END ==
LOC: WI 13:58
PROVIDERS: ATTEND Physician Assistant
DX: Z12.31 Encounter for screening mammogram for malignant neoplasm of breast (principal); R92.0 Mammographic microcalcification found on diagnostic imaging of breast
CPT/HCPCS: 77067

== ENCOUNTER → 2020-02-04 | Outpatient (CLI) | payer MEDICARE | LOC: WI 11:13 | PROVIDERS: ATTEND Physician Assistant | DX: R92.0 Mammographic microcalcification found on diagnostic imaging of breast (principal) | CPT/HCPCS: 77065 ==